=== PATIENT | male | born 2000 | race Caucasian/White ===

== ENCOUNTER 2021-11-16 18:09 | Outpatient (CLI) | payer OTHER ==
--- NOTE | 2021-11-17 00:48 | XRAY Report ---
PROCEDURE: Knee 3 View LT INDICATIONS: EFFUSION OF LEFT KNEE TECHNIQUE: 3 views of the left knee(s) were acquired. COMPARISON: None. FINDINGS: Bones: No fractures or dislocations. No suspicious bony lesions. The femorotibial joint spaces are well preserved. On the sunrise view, there is mild lateral patello femoral joint space narrowing, with associated remodeling changes, including spurs along the margins of the patella. Soft tissues: There is a moderate joint effusion. Mild soft tissue swelling is seen anteriorly. No cummings spicious soft tissue calcifications. IMPRESSION: Moderate joint effusion. No acute bony abnormality is seen. Mild lateral patellofemoral joint space narrowing is seen. If it would be helpful for clinical management decision making, please consider a dedicated, schedule d knee MRI for further evaluation (assuming that there is no contraindication). Reviewed by: Jeffrey El MD on 11/16/2021 11:47 PM [facility] Approved by: Jeffrey El MD on 11/16/2021 11:47 PM [facility] Station ID: [id number]
== END 2021-11-16 23:59 | disposition home or self-care (01) ==
LOC: DI.S 18:09
PROVIDERS: ATTEND Physician Assistant
DX: M25.462 Effusion, left knee (principal); M17.12 Unilateral primary osteoarthritis, left knee